=== PATIENT | female | born 1960 | race Caucasian/White ===

== ENCOUNTER 2017-04-28 10:03 | Emergency (ER) | payer MEDICAID ==
[~2017-04-28] VITALS: Ht 167.6 cm; Wt 98.0 kg
[2017-04-28 10:13] VITALS: BP 157/89
[2017-04-28] MEDS ORDERED: KETOROLAC 30 MG/1 ML IM ONE (11:30)
[2017-04-28] MEDS ORDERED: OXYcodone/APAP 5/325MG TABLET ONE (11:30)
[2017-04-28] MEDS ORDERED: OXYcodone/APAP 5/325MG TABLET PO ONE (11:30)
[2017-04-28] MEDS ORDERED: KETOROLAC 30 MG/1 ML ONE (11:30)
== END 2017-04-28 14:09 | disposition home or self-care (01) ==
LOC: ED 10:52
DX: S22.32XA Fracture of one rib, left side, initial encounter for closed fracture (principal); S83.92XA Sprain of unspecified site of left knee, initial encounter; S63.502A Unspecified sprain of left wrist, initial encounter; E78.00 Pure hypercholesterolemia, unspecified; I10 Essential (primary) hypertension; W01.0XXA Fall on same level from slipping, tripping and stumbling without subsequent striking against object, initial encounter; Y93.89 Activity, other specified; Y92.488 Other paved roadways as the place of occurrence of the external cause; Y99.8 Other external cause status; Z98.890 Other specified postprocedural states
CPT/HCPCS: 29505; 71101; 73090; 73564; 73590; 96372; 99284; J1885

== ENCOUNTER 2017-09-26 06:13 | Observation (INO) | payer MEDICAID ==
[~2017-09-26] VITALS: Ht 167.6 cm; Wt 94.9 kg
[2017-09-26 07:00] LABS: BASOPHILS # (AUTO) 0.02 x10^3/uL (0-0.1); BASOPHILS % (AUTO) 0 % (0-1); EOSINOPHILS # (AUTO) 0.15 x10^3/uL (0-0.4); EOSINOPHILS % (AUTO) 2 % (1-7); LYMPHOCYTES # (AUTO) 2.54 x10^3/uL (1-3.4); LYMPHOCYTES % (AUTO) 36 % (22-44); MD NO; MEAN CORPUSCULAR HEMOGLOBIN 33.2 pg (27.0-34.8); MEAN CORPUSCULAR HGB CONC 34.4 g/dL (32.4-35.8); MEAN CORPUSCULAR VOLUME 96.5 fL (80-100); MEAN PLATELET VOLUME 8.7 fL (7.4-10.4); MONOCYTES # (AUTO) 0.36 x10^3/uL (0.2-0.8); MONOCYTES % (AUTO) 5 % (2-9); NEUTROPHILS # (AUTO) 4.07 x10^3/uL (1.8-6.8); NEUTROPHILS % (AUTO) 57 % (42-75); PLATELET COUNT 112 x10^3/uL (130-400); RED BLOOD COUNT 4.56 x10^6/uL (3.82-5.3); RED CELL DISTRIBUTION WIDTH 15.4 % (9.6-15.2)
[2017-09-26] MEDS ORDERED: SODIUM CHLORIDE FLUSH 10ML SYR IVF ONE (07:00)
[2017-09-26] MEDS ORDERED: ASPIRIN 81 MG TABLET CHEW PO ONE (07:00)
[2017-09-26] MEDS ORDERED: NITROGLYCERIN SINGLE TAB 0.4 MG SL PRN (07:00)
[2017-09-26] MEDS ORDERED: NITROGLYCERIN SINGLE TAB 0.4 MG SL ONE (07:02)
[2017-09-26] MEDS ORDERED: ASPIRIN 81 MG TABLET CHEW ONE (07:03)
[2017-09-26 07:13] LABS: ALBUMIN 3.4 g/dL (3.4-5.0); ANION GAP 5 mmol/L (5-15); CALCIUM 9.6 mg/dL (8.5-10.1); CHLORIDE 112 mmol/L (98-107)
[2017-09-26 07:19] LABS: ALANINE AMINOTRANSFERASE 32 U/L (12-78); ALKALINE PHOSPHATASE 138 U/L (45-117); BILIRUBIN,TOTAL 0.4 mg/dL (0.2-1.0); CREATININE 0.72 mg/dL (0.55-1.02); TOTAL PROTEIN 6.6 g/dL (6.4-8.2); TROPONIN I < 0.015 ng/mL (0.000-0.045)
[2017-09-26] MEDS ORDERED: OMNIPAQUE 350 MG/ML, 100ML BOTTLE ONE (08:33)
[2017-09-26] MEDS ORDERED: HYDR12.58 PO (09:35)
[2017-09-26] MEDS ORDERED: FURO-93 PO (09:35)
[2017-09-26] MEDS ORDERED: ATOR40TA78 PO (09:35)
[2017-09-26] MEDS ORDERED: ATEN25TA PO (09:35)
[2017-09-26] MEDS ORDERED: AMLO10TA2 PO (09:35)
[2017-09-26 11:19] VITALS: BP 117/66
[2017-09-26] MEDS ORDERED: BISACODYL 10 MG SUPP PR PRN (11:30)
[2017-09-26] MEDS ORDERED: DOCUSATE 100 MG CAPSULE PO PRN (11:30)
[2017-09-26] MEDS ORDERED: ONDANSETRON 2MG/ML, 2ML IVPush PRN (11:30)
[2017-09-26] MEDS ORDERED: ONDANSETRON ODT 4 MG PO PRN (11:30)
[2017-09-26] MEDS ORDERED: LABETALOL 5MG/ML, 20ML IVPush PRN (11:30)
[2017-09-26] MEDS ORDERED: POLYETHYLENE GLYCOL 17 GM PACKET PO PRN (11:30)
[2017-09-26] MEDS ORDERED: ENALAPRILAT 1.25 MG/ML, 2ML IVPush PRN (11:30)
[2017-09-26] MEDS ORDERED: morphine SULFATE 10 MG/ML, 1ML IVPush PRN (11:30)
[2017-09-26] MEDS ORDERED: ACETAMINOPHEN 325 MG TABLET PO PRN (11:30)
[2017-09-26 12:35] LABS: HEMOGLOBIN A1C 5.8 % (4.2-6.3)
[2017-09-26 13:56] VITALS: BP 117/66
[2017-09-26 15:38] LABS: TROPONIN I < 0.015 ng/mL (0.000-0.045)
[2017-09-26] MEDS: LACTULOSE 10 GM/15 ML UDC PO SCH ×2 (17:49→22:34)
[2017-09-26] MEDS: NICOTINE 7 MG/24 HR PATCH.TD24 TD SCH (17:49)
[2017-09-26 19:30] VITALS: BP 125/84
[2017-09-26 21:32] LABS: TROPONIN I < 0.015 ng/mL (0.000-0.045)
[2017-09-26] MEDS: ATORVASTATIN 40 MG TABLET PO SCH (22:34)
[2017-09-26] MEDS: ATENOLOL 25 MG TABLET PO SCH (22:35)
[2017-09-26 22:37] VITALS: BP 132/83
[2017-09-27 01:10] VITALS: BP 122/75
[2017-09-27 08:03] LABS: ALANINE AMINOTRANSFERASE 34 U/L (12-78); ALBUMIN 3.3 g/dL (3.4-5.0); ANION GAP 5 mmol/L (5-15); CALCIUM 9.3 mg/dL (8.5-10.1); CHLORIDE 112 mmol/L (98-107); CREATININE 0.69 mg/dL (0.55-1.02)
[2017-09-27 08:12] LABS: ALKALINE PHOSPHATASE 146 U/L (45-117); BILIRUBIN,TOTAL 0.5 mg/dL (0.2-1.0); FREE T4 (FREE THYROXINE) 1.32 ng/dL (0.76-1.46); TOTAL PROTEIN 6.6 g/dL (6.4-8.2)
[2017-09-27] MEDS ORDERED: REGADENOSON 0.4 MG/5 ML SYRINGE ONE (08:12)
[2017-09-27 08:14] LABS: BASOPHILS # (AUTO) 0.04 x10^3/uL (0-0.1); BASOPHILS % (AUTO) 1 % (0-1); EOSINOPHILS # (AUTO) 0.17 x10^3/uL (0-0.4); EOSINOPHILS % (AUTO) 2 % (1-7); LYMPHOCYTES # (AUTO) 2.84 x10^3/uL (1-3.4); LYMPHOCYTES % (AUTO) 40 % (22-44); MD SCAN; MEAN CORPUSCULAR HEMOGLOBIN 32.4 pg (27.0-34.8); MEAN CORPUSCULAR HGB CONC 33.8 g/dL (32.4-35.8); MEAN CORPUSCULAR VOLUME 95.9 fL (80-100); MEAN PLATELET VOLUME 9.6 fL (7.4-10.4); MONOCYTES # (AUTO) 0.43 x10^3/uL (0.2-0.8); MONOCYTES % (AUTO) 6 % (2-9); NEUTROPHILS % (AUTO) 51 % (42-75); PLATELET COUNT 94 x10^3/uL (130-400); RED CELL DISTRIBUTION WIDTH 15.7 % (9.6-15.2)
[2017-09-27] MEDS: SENNA/DOCUSATE TABLET PO SCH (08:14)
[2017-09-27] MEDS: FUROSEMIDE 20 MG TABLET PO SCH (08:14)
[2017-09-27] MEDS: HYDROCHLOROTHIAZIDE 12.5 MG CAPSULE PO SCH (08:14)
[2017-09-27] MEDS: LACTULOSE 10 GM/15 ML UDC PO SCH ×2 (08:14→20:27)
[2017-09-27] MEDS: AMLODIPINE 5 MG TABLET PO SCH ×2 (08:14→20:53)
[2017-09-27] MEDS: ATENOLOL 25 MG TABLET PO SCH (08:14)
[2017-09-27 08:26] VITALS: BP 116/65
[2017-09-27] MEDS ORDERED: ATENOLOL 25 MG TABLET PO SCH (09:00)
[2017-09-27 13:40] VITALS: BP 138/92
[2017-09-27] MEDS ORDERED: HEPARIN 5,000 UNITS/ML, 1ML SQ SCH (14:00)
[2017-09-27] MEDS: NICOTINE 7 MG/24 HR PATCH.TD24 TD SCH (14:12)
[2017-09-27 19:46] VITALS: BP 142/77
[2017-09-27 20:00] VITALS: BP 136/96
[2017-09-27] MEDS: ATORVASTATIN 40 MG TABLET PO SCH (20:27)
[2017-09-27] MEDS ORDERED: NITROGLYCERIN 0.4 MG BOTTLE (25 TABS) SL PRN (20:30)
[2017-09-27 20:43] VITALS: BP 147/79
[2017-09-27 21:32] LABS: TROPONIN I < 0.015 ng/mL (0.000-0.045)
[2017-09-27] MEDS: ZOLPIDEM 5MG TABLET PO PRN (23:01)
[2017-09-28] MEDS: ZOLPIDEM 5MG TABLET PO PRN (00:04)
[2017-09-28 02:01] VITALS: BP 148/77
[2017-09-28 07:24] VITALS: BP 114/68
[2017-09-28] MEDS: LACTULOSE 10 GM/15 ML UDC PO SCH (08:48)
[2017-09-28] MEDS: FUROSEMIDE 20 MG TABLET PO SCH (08:48)
[2017-09-28] MEDS: SENNA/DOCUSATE TABLET PO SCH (08:48)
[2017-09-28] MEDS: HYDROCHLOROTHIAZIDE 12.5 MG CAPSULE PO SCH (08:48)
[2017-09-28] MEDS ORDERED: REGADENOSON 0.4 MG/5 ML SYRINGE ONE (09:18)
== END 2017-09-28 15:35 | disposition home or self-care (01) ==
LOC: ED 08:44 → INTOOBSV 09:10 → EDIP 09:10 → 5SO 11:13
PROVIDERS: ADMIT Hospitalist; ATTEND Hospitalist
DX: R07.89 Other chest pain (principal); E78.5 Hyperlipidemia, unspecified; E78.00 Pure hypercholesterolemia, unspecified; I10 Essential (primary) hypertension; K59.00 Constipation, unspecified; D69.6 Thrombocytopenia, unspecified; F41.9 Anxiety disorder, unspecified; J44.9 Chronic obstructive pulmonary disease, unspecified; F17.210 Nicotine dependence, cigarettes, uncomplicated; Z82.49 Family history of ischemic heart disease and other diseases of the circulatory system
CPT/HCPCS: 36415; 71275; 74022; 78452; 80053; 82962; 83036; 83690; 83735; 83880; 84100; 84439; 84443; 84484; 85025; 85379; 93005; 93017; 93306; 99285; A9502; C9898; G0378; J2785; Q0162; Q9967

== ENCOUNTER 2019-03-31 06:32 | Emergency (ER) | payer MEDICAID ==
[~2019-03-31] VITALS: Ht 167.6 cm; Wt 94.3 kg
[~2019-03-31 06:32] MED LIST: AMLO10TA8 PO; ATEN25TA PO; ATOR40TA78 PO; FURO-93 PO; HYDROCHLOROTH12.5 MG PO
--- NOTE | 2019-03-31 07:03 | NUR ---
PATIENT ARRIVES WITH SOB THAT BEGAN TWO DAYS AGO. SHE IS 96% ON ROOM AIR, TALKING WITH NO DEFICITS NOTED, RR 14, NO ACCESORY MUSCLE USE AND LUNGS SOUND CLEAR. PATIENT WAS HOME AND SITTING AND GOT SOB AND FELT LIGHT HEADED ON EXERTION; SHE HAS FELT THIS WAY FOR TWO DAYS. HR 75. PATIENT HAS A PAST MEDICAL HX SIGNIFICANT FOR PSORIASIS, HTN, HIGH CHOLESTEROL.
[2019-03-31] MEDS ORDERED: ASPI-496 PO (07:08)
[2019-03-31] MEDS ORDERED: ALBUTEROL/IPRATROPIUM 2.5MG/0.5MG, 3 ML ONE (07:12)
[2019-03-31] MEDS: ALBUTEROL/IPRATROPIUM 2.5MG/0.5MG, 3 ML NPPB SCH (07:15)
--- NOTE | 2019-03-31 07:24 | NUR ---
PATIENT BLOODWORK SENT TO LAB, PATIENT GETTING TREATMENT BY RT. IN BED ON MONITOR.
[2019-03-31] MEDS ORDERED: ASPIRIN 81 MG TABLET EC ONE (07:27)
[2019-03-31] MEDS ORDERED: ONDANSETRON 2MG/ML, 2ML ONE (07:27)
[2019-03-31] MEDS ORDERED: ONDANSETRON 2MG/ML, 2ML IVPush ONE (07:30)
[2019-03-31] MEDS ORDERED: SODIUM CHLORIDE FLUSH 10ML SYR IVF ONE (07:30)
[2019-03-31] MEDS ORDERED: ASPIRIN 81 MG TABLET CHEW PO ONE (07:30)
[2019-03-31] MEDS ORDERED: TRIAMCINOLONE ACETONIDE 40 MG/ML, 1ML IM ONE (07:30)
[2019-03-31 07:49] LABS: ANION GAP 5 mmol/L (5-15); CALCIUM 9.5 mg/dL (8.5-10.1); CHLORIDE 110 mmol/L (98-107); CREATININE 0.62 mg/dL (0.55-1.02)
--- NOTE | 2019-03-31 07:50 | NUR ---
Melba (Technologist) - patient recieving meds, still had bra and 2 chains on. had to wait on nurse to assist.
[2019-03-31 07:52] LABS: TROPONIN I < 0.015 ng/mL (0.000-0.045)
--- NOTE | 2019-03-31 07:53 | NUR ---
WHEN PATIENT DOZES OFF HER OXYGEN DROPS TO 80'S. PLACED ON TWO LITERS NASAL CANNULA, BACK TO 90'S. [id number]
[2019-03-31 07:57] LABS: BASOPHILS # (AUTO) 0.03 x10^3/uL (0-0.1); BASOPHILS % (AUTO) 1 % (0-1); EOSINOPHILS # (AUTO) 0.16 x10^3/uL (0-0.4); EOSINOPHILS % (AUTO) 3 % (1-7); LYMPHOCYTES % (AUTO) 42 % (22-44); MD SCAN; MEAN CORPUSCULAR HEMOGLOBIN 33.1 pg (27.0-34.8); MEAN CORPUSCULAR HGB CONC 33.7 g/dL (32.4-35.8); MEAN PLATELET VOLUME 9.8 fL (7.4-10.4); MONOCYTES # (AUTO) 0.45 x10^3/uL (0.2-0.8); MONOCYTES % (AUTO) 8 % (2-9); NEUTROPHILS # (AUTO) 2.57 x10^3/uL (1.8-6.8); NEUTROPHILS % (AUTO) 47 % (42-75); PLATELET COUNT 64 x10^3/uL (130-400); RED CELL DISTRIBUTION WIDTH 13.4 % (9.6-15.2)
[2019-03-31 08:27] VITALS: BP 165/78
--- NOTE | 2019-03-31 08:28 | NUR ---
discharge reviewed. patient shows understanding.
== END 2019-03-31 08:36 | disposition home or self-care (01) ==
LOC: ED 07:48
DX: J44.1 Chronic obstructive pulmonary disease with (acute) exacerbation (principal); E78.00 Pure hypercholesterolemia, unspecified; F17.200 Nicotine dependence, unspecified, uncomplicated; I10 Essential (primary) hypertension; L40.0 Psoriasis vulgaris
CPT/HCPCS: 36415; 71045; 80048; 82040; 83880; 84484; 85025; 93005; 94640; 96372; 96374; 99284; J2405; J3301; J7620

== ENCOUNTER → 2019-04-15 | Outpatient (CLI) | payer MEDICAID ==
[~2019-04-15] MED LIST changes: +ASPI-496 PO
== END | disposition home or self-care (01) ==
LOC: CVU 07:21
PROVIDERS: ATTEND Surgery
DX: I87.2 Venous insufficiency (chronic) (peripheral) (principal); R60.0 Localized edema; M79.604 Pain in right leg; M79.605 Pain in left leg; F17.200 Nicotine dependence, unspecified, uncomplicated
CPT/HCPCS: 93922; 93970